=== PATIENT | female | born 1975 | race American Indian/Alaskan Native ===

== ENCOUNTER 2017-03-23 13:59 | Emergency (ER) | payer SELFPAY ==
[2017-03-23] MEDS ORDERED: TYLENOL PO STA (14:10)
[2017-03-23] MEDS ORDERED: NACL 0.9% 500 ML 500 ML IV ONE (14:10)
[2017-03-23 15:36] LABS: Basophils % (Auto) 0.3 % (0.0-1.8); Hematocrit 40.3 % (30.3-42.9); Mean Corpuscular HGB Conc 35 % (30-34); Mean Corpuscular Hemoglobin 35 pg (28-32); Mean Corpuscular Volume 102 fl (79-97); Platelet Count 250 K/mm3 (140-440); Red Blood Count 3.97 M/mm3 (3.65-5.03); Red Cell Distribution Width 13.4 % (13.2-15.2); White Blood Count 12.7 K/mm3 (4.5-11.0)
[2017-03-23 15:46] LABS: INR 0.99 (0.87-1.13)
[2017-03-23 15:58] LABS: Alanine Aminotransferase 10 units/L (7-56); Albumin 3.7 g/dL (3.9-5); Albumin/Globulin Ratio 1.4 %; Alkaline Phosphatase 87 units/L (35-129); Anion Gap 19 mmol/L; BUN/Creatinine Ratio 23; Blood Urea Nitrogen 14 mg/dL (7-17); Calcium 8.8 mg/dL (8.4-10.2); Carbon Dioxide 26 mmol/L (22-30); Chloride 93.4 mmol/L (98-107); Glucose 103 mg/dL (65-100); Potassium 3.6 mmol/L (3.6-5.0); Sodium 135 mmol/L (137-145); Total Protein 6.4 g/dL (6.3-8.2)
[2017-03-23] MEDS ORDERED: TORADOL IV ONE (16:15)
[2017-03-23] MEDS ORDERED: LEVAQUIN 750MG/150ML 750 MG/150 ML BAG IV ONE (16:16)
[2017-03-23 16:18] LABS: Bacteria,Urine 1+ /HPF (Negative); Bilirubin,Urine NEG (Negative); Blood,Urine MOD (Negative); Ketones,Urine NEG (Negative); Leukocyte Esterase,Urine LG (Negative); Mucus,Urine FEW /HPF; Nitrite,Urine NEG (Negative); Protein,Urine <15 mg/dL mg/dL (Negative); RBC,Urine < 1.0 /HPF (0.0-6.0); Urobilinogen,Urine < 2.0 mg/dL (<2.0)
[2017-03-23 16:19] LABS: WBC,Urine > 182.0 /HPF (0.0-6.0)
--- NOTE | 2017-03-23 16:21 | Emergency Department Report ---
ED Fever HPI - General Chief Complaint: Fever Stated Complaint: RIGHT SIDE FLANK PAIN/FEVER Time Seen by Provider: 03/23/17 16:06 Source: patient, family - History of Present Illness Initial Comments: 41 yo female who comes in today due to right flank pain times one week. She states that she has had fever as well. Denies any pertinent past medical history. Pain described as achy, sharp, 8/10, with no radiation, nausea, or vomiting. Fever of 102 in the ed which was treated with tylenol. Timing/Duration: week (1) Fever Severity/Quality: other (102-in the ed) Fever Therapy [employer]ER: none Associated Symptoms: denies symptoms ED Review of Systems ROS: Stated complaint: RIGHT SIDE FLANK PAIN/FEVER Other details as noted in HPI Constitutional: fever Eyes: denies: eye pain, eye discharge, vision change ENT: denies: ear pain, throat pain Respiratory: denies: cough, shortness of breath, wheezing Cardiovascular: denies: chest pain, palpitations Endocrine: no symptoms reported Gastrointestinal: as per HPI Genitourinary: dysuria Skin: denies: rash, lesions Neurological: denies: headache, weakness, paresthesias Psychiatric: denies: anxiety, depression Hematological/Lymphatic: denies: easy bleeding, easy bruising ED Past Medical Hx - Past Medical History Previous Medical History?: No - Surgical History Past Surgical History?: No - Social History Smoking Status: Current Every Day Smoker Substance Use Type: None - Medications Home Medications: Home Medications Medication Instructions Recorded Confirmed Last Taken Type Ciprofloxacin [Ciprofloxacin ORAL 500 mg PO Q12H #28 ml 03/23/17 Unknown Rx LIQ] HYDROcodone/ACETAMINOPHEN [Brandon 1 each PO Q8HR PRN #20 tablet 03/23/17 Unknown Rx 5-325 Tablet] Ondansetron [Zofran Odt] 4 mg PO Q6HR PRN #20 tab.rapdis 03/23/17 Unknown Rx ED Physical Exam - General Limitations: No Limitations General appearance: alert, in no apparent distress - Head Head exam: Present: atraumatic, normocephalic - Eye Eye exam: Present: normal appearance - ENT ENT exam: Present: mucous membranes moist - Neck Neck exam: Present: normal inspection - Respiratory Respiratory exam: Present: normal lung sounds bilaterally. Absent: respiratory distress - Cardiovascular Cardiovascular Exam: Present: tachycardia. Absent: systolic murmur, diastolic murmur, rubs, gallop - GI/Abdominal GI/Abdominal exam: Present: other (right cva tenderness ) - Extremities Exam Extremities exam: Present: normal inspection - Back Exam Back exam: Present: CVA tenderness (R) - Neurological Exam Neurological exam: Present: alert, oriented X3 - Psychiatric Psychiatric exam: Present: normal affect, normal mood - Skin Skin exam: Present: warm, dry, intact, normal color. Absent: rash ED Course Vital Signs 03/23/17 14:04 Temperature 102 F H Pulse Rate 109 H Respiratory 24 Rate Blood Pressure 164/84 O2 Sat by Pulse 100 Oximetry - Reevaluation(s) Reevaluation #1: 03/23/17 18:02 Patient admits to feeling much better. Home with po antibiotics, pain medication, and nausea/vomiting meds. ED Medical Decision Making - Lab Data Result diagrams: 03/23/17 15:04 03/23/17 15:04 - EKG Data -: EKG Interpreted by Me EKG shows normal: sinus rhythm Rate: normal - EKG Data When compared to previous EKG there are: previous EKG unavailable Interpretation: no acute changes, normal EKG - Radiology Data Radiology results: report reviewed Right pyelonephritis Cystitis - Medical Decision Making Right pyelonephritis Cystitis - Differential Diagnosis Right pyelonephritis, cystitis Critical care attestation.: If time is entered above; I have spent that time in minutes in the direct care of this critically ill patient, excluding procedure time. ED Disposition Clinical Impression: Pyelonephritis, Cystitis Disposition: DC-01 TO HOME OR SELFCARE Is pt being admited?: No Does the pt Need Aspirin: No Condition: Stable Instructions: Acute Pyelonephritis (ED), Urinary Tract Infection in Women (ED) Additional Instructions: Take medicines as prescribed. May take tylenol 650 mg by mouth every 6-8 hours for temperature greater than 100.4 Remember to hydrate until better to avoid dehydration. Prescriptions: Ciprofloxacin [Ciprofloxacin ORAL LIQ] 500 mg PO Q12H #28 ml HYDROcodone/ACETAMINOPHEN [Brandon 5-325 Tablet] 1 each PO Q8HR PRN #20 tablet PRN Reason: Pain Ondansetron [Zofran Odt] 4 mg PO Q6HR PRN #20 tab.rapdis PRN Reason: Nausea And Vomiting Time of Disposition: 18:12
[2017-03-23] MEDS ORDERED: NACL 0.9% 1000 ML 1,000 ML IV ONE (16:22)
--- NOTE | 2017-03-23 17:37 | Cat Scan Report ---
FINAL REPORT EXAM: CT ABDOMEN PELVIS W CON HISTORY: pyelonephritis TECHNIQUE: CT examination of the ABDOMEN after IV contrast CT examination of the PELVIS after IV contrast PRIORS: None. FINDINGS: Nonspecific hepatomegaly with sagittal dimension of 22.0 cm. Nonspecific 12 mm smoothly marginated lesion in medial segment of left hepatic lobe. It contains discontinuous peripheral enhancement suggesting hemangioma. Normal-appearing gallbladder, adrenals, pancreas, and spleen. Intact normal caliber abdominal aorta and IVC. Normal-appearing left kidney and visible left ureter. Abnormal right kidney with focal decreased parenchymal IV contrast-enhancement anteriorly, 2.4 cm, and inferiorly, 2.5 cm. There is associated slight mass effect with the lower pole involvement, possibly representing early 2.5 cm abscess. Areas of renal parenchymal hypo enhancement may reflect ischemia, edema, inflammation, or infection. In addition, there asymmetric abnormal fat stranding adjacent and inferior to the right kidney as well as trace fluid inferior to the right kidney extending into the right pericolic gutter. There is slight mural thickening in the right renal pelvis with IV contrast hyperenhancement. These findings are most compatible with right pyelonephritis. No renal calculus or hydronephrosis. Small simple appearing cyst in right kidney posteriorly. Very small fat containing umbilical hernia. Very small fat containing bilateral inguinal hernia. No retroperitoneal adenopathy. No definite mesenteric mass. Normal-appearing stomach and duodenum. No small bowel distention in the abdomen and pelvis. Trace pelvic free fluid may be reactive. Minimal urinary bladder mural thickening with slight hyperenhancement may be secondary to cystitis. No definite uterine or adnexal abnormality. Normal-appearing rectum and sigmoid colon. Nonspecific mural thickening with submucosal fat attenuation is present in the splenic flexure and descending colon No evidence of free air or colonic distention. Normal-appearing cecum, terminal ileum, and appendix. IMPRESSION: Multiple right renal and perirenal findings suspicious for right pyelonephritis. Right lower pole lesion may be an early renal abscess Minimal urinary bladder mural thickening and hyperenhancement may be secondary to cystitis Trace pelvic free fluid may be reactive Nonspecific submucosal fat attenuation in the splenic flexure and descending colon may be a normal variant or related to body habitus. The differential includes inflammatory bowel disease or sequela of prior colitis. Hepatomegaly. Left liver lesion may be a hemangioma Very small fat containing hernias
[2017-03-23 18:04] VITALS: BP 147/79
--- NOTE | 2017-03-23 18:17 | XRay Report ---
FINAL REPORT EXAM: XR CHEST ROUTINE 2V HISTORY: possible Sepsis TECHNIQUE: 2 view examination of the chest PRIORS: None FINDINGS: There is no visible pulmonary consolidation, pleural effusion, or pneumothorax. Cardiac silhouette size is normal without vascular congestion. No visible acute displaced fracture in the regional skeleton. IMPRESSION: No evidence of acute cardiopulmonary disease
== END 2017-03-23 19:16 | disposition home or self-care (01) ==
LOC: ED 13:59
DX: N12 Tubulo-interstitial nephritis, not specified as acute or chronic (principal); N30.90 Cystitis, unspecified without hematuria; F17.200 Nicotine dependence, unspecified, uncomplicated
CPT/HCPCS: 36415; 71020; 74177; 80053; 81001; 82140; 82805; 85025; 85610; 87040; 87076; 87086; 87186; 93005; 93010; 96365; 96375; 99285; J1885; Q9967